=== PATIENT | male | born 1985 | race Caucasian/White ===

== ENCOUNTER 2017-01-27 17:51 | Emergency (ER) | payer OTHER | END 2017-01-27 22:07 | disposition home or self-care (01) | LOC: ER 17:51 | DX: S60.221A Contusion of right hand, initial encounter (principal); W01.0XXA Fall on same level from slipping, tripping and stumbling without subsequent striking against object, initial encounter; K08.89 Other specified disorders of teeth and supporting structures; Z90.81 Acquired absence of spleen; F17.210 Nicotine dependence, cigarettes, uncomplicated | CPT/HCPCS: 73130; 99070; 99283 ==